=== PATIENT | female | born 2000 | race Caucasian/White ===

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

== ENCOUNTER 2019-12-06 11:46 | Emergency (ER) | payer MEDICAID, OTHER ==
--- NOTE | 2019-12-06 11:56 | UC ---
HPI Wound/Suture Re-check - HPI Summary HPI Summary: 18 yo, here for removal of maci from scalp, placed one week ago today. She lacerated along the hair line when she was hit by a ceiling fan while standing on the bed. - History Of Current Complaint Stated Complaint: REMOVAL OF MACI (NOT DONE HERE) Time Seen by Provider: 12/06/19 11:53 Hx Obtained From: Patient Hx Last Menstrual Period: 05/28 Onset/Duration: Sudden Onset Severity: Mild Procedure Type: repair of laceration Surgery Date: 11/29/19 Head: 1 - 2 maci just inside hair line. - Allergies/Home Medications Allergies/Adverse Reactions: Allergies Allergy/AdvReac Type Severity Reaction Status Date / Time No Known Allergies Allergy Verified 12/06/19 11:57 Home Medications: Home Medications NK [No Home Medications Reported] 12/06/19 [History Confirmed 12/06/19] PMH/Surg Hx/FS Hx/Imm Hx Previously Healthy: Yes - Surgical History Surgical History: None - Family History Known Family History: Positive: Diabetes - father (now , cause of unknown) - Social History Occupation: Unemployed Lives: With Family Alcohol Use: None Substance Use Type: None Smoking Status (MU): Former Smoker - Immunization History Vaccination Up to Date: Yes Review of Systems All Other Systems Reviewed And Are Negative: Yes Constitutional: Positive: Negative Skin: Positive: Other - laceration healing well Eyes: Positive: Negative ENT: Positive: Negative Respiratory: Positive: Negative Cardiovascular: Positive: Negative Gastrointestinal: Positive: Negative Genitourinary: Positive: Negative Motor: Positive: Negative Neurovascular: Positive: Negative Musculoskeletal: Positive: Negative Neurological/Mental Status: Positive: Other - denies symptoms suggestive of concussion. Negative: Headache Psychological: Positive: Negative Is Patient Immunocompromised?: No Physical Exam Triage Information Reviewed: Yes Appearance: Well-Appearing, No Pain Distress Eye Exam: Normal ENT: Positive: Normal ENT inspection Respiratory Exam: Normal Cardiovascular Exam: Normal Musculoskeletal Exam: Normal Neurological Exam: Normal Psychological Exam: Normal Skin Exam: Other - 2 maci removed--laceration about 2.5cm is well healed with some crust along the staple line. Course/Dx - Course Course Of Treatment: sutures removed, well healed laceration - Differential Dx - Laceration/Wound Differential Diagnoses: Other - laceration (scalp) - Diagnosis Provider Diagnosis: Laceration of scalp without complication Discharge ED - Sign-Out/Discharge Documenting (check all that apply): Patient Departure All imaging exams completed and their final reports reviewed: No Studies - Discharge Plan Condition: Good Disposition: HOME Patient Education Materials: Stitches Removal (ED) Referrals: Jennifer Evangelista PA [Primary Care Provider] - Additional Instructions: Maci were removed today and the laceration is well healed. You have gently wash your hair. Apply firm compression if you have any bleeding as the crust comes away. - Billing Disposition and Condition Condition: GOOD Disposition: Home
[2019-12-06 12:00] VITALS: BP 113/55
== END 2019-12-06 12:12 | disposition home or self-care (01) ==
LOC: UCCORT 11:46
DX: S01.01XD Laceration without foreign body of scalp, subsequent encounter (principal); W45.8XXD Other foreign body or object entering through skin, subsequent encounter; Z87.891 Personal history of nicotine dependence
CPT/HCPCS: 99211; G0463